=== PATIENT | female | born 1980 | race Caucasian/White ===

== ENCOUNTER → 2021-04-21 | Outpatient (CLI) | payer OTHER ==
--- NOTE | 2021-04-21 18:33 | FL ---
EXAMINATION TYPE: Right wrist fluoroscopic-guided arthrogram injection. DATE OF EXAM: 04/21/2021 HISTORY: 40-year-old male R22.31, lateral wrist lump and pain/numbness of the fourth and fifth digits . PROCEDURES: 1. Right wrist fluoroscopy. 2. Right wrist arthrogram. Total fluoroscopy time: 36 seconds. Total images: 5 TECHNIQUE: The procedure, risks, and alternatives, were discussed with the patient, who requested that sadaf pérez The consent form was signed, and teach-back occurred. The site/side of the procedure was marked with a line with participation by the patient. The accompan lauren paperwork was verified for consistency. A directed history and physical exam was performed prior to the procedure. Medication reconciliation was performed by ancillary personnel. A critical pause was performed with assisting personnel just pr ior to the procedure, and the patient's identity was confirmed using 2 identifiers. Imaging guidance was utilized to select the precise skin entry point just prior to the procedure. The dorsal right was prepped and draped in the usual sterile fashion and local 1% lidocaine anesthesi a was instilled. Under fluoroscopic guidance, a 25 gauge 1.5 inch needle was introduced into the katelyn liz radioscaphoid joint and appropriate needle tip position was confirmed after a small amount of con trast injection. Approximately 2 ml from a 20 mL mixture comprised of 5 mL Isovue-300, 15 mL sterile saline, and 0.07 mL Gadavist was injected into the patient's wrist joint. The needle was then removed. The patient zohaib erated the procedure well. There was no immediate complication. After the procedure, the patient's condition was unchanged. Estimated blood loss was minimal. Images show no clear extension into either the mid carpal compartment or distal radioulnar joint. IMPRESSION: Technically successful right wrist arthrogram injection for MRI. No immediate complication.
--- NOTE | 2021-04-24 22:29 | MR ---
EXAMINATION TYPE: MR wrist arthrogram RT w con DATE OF EXAM: 04/21/2021 COMPARISON: NONE HISTORY: 40-year-old female R22.31, lump on her right wrist anterior lateral edge. No known trauma. P ain in wrist, on occasion 4th and 5th digits get cold. Technique: Multiplanar, multisequence images of the right wrist were obtained after intra-articular a dministration of a gadolinium mixture. Please refer to arthrogram injection report of that same day f or further details. FINDINGS: The scapholunate ligament is intact. Lunotriquetral ligament is intact. No evidence for acute or healing fracture. There is some inadvertent administration of contrast into the second and third dorsal compartments. O therwise, the dorsal and volar flexor tendons show no gross abnormality. Mildly thickened median nerve at the level of the distal wrist crease with a cross-sectional area of 13 sq mm. The median nerve is also seen at this level. Fascicles appear slightly thickened, axial abel ge 8. There is inadvertent extravasation of administered contrast along the ulnar volar aspect of the wrist extravasated contrast tracks proximally along the ulnar half of the volar musculature. There is also a 1.5 x 1.3 x 0.9 cm cystic area that fills with contrast along the ulnar volar aspect of the wrist. This is in close proximity to the ulnar nerve. In addition, multilocular cystic area along the radial aspect of the wrist measuring 1.6 x 1.3 x 1.0 cm. There is no extension of contrast into the midcarpal compartment or into the distal radioulnar joint. The TFC remains intact. IMPRESSION: 1. A 1.6 x 1.3 x 1.0 cm multilocular ganglion cyst versus a prominent volar recess along the radial a spect of the wrist. This probably corresponds to the patient's lump and is noted to fill with injecte d contrast, indicating that it communicates with the joint. 2. A similar area along the ulnar volar aspect of the wrist measures 1.5 x 1.3 x 0.9 cm and is in el se proximity to the ulnar nerve but without clear nerve impingement. The ulnar nerve itself shows vladimir ewhat thickened fascicles which can be seen with ulnar neuropathy. Clinically correlate. 3. In addition, the median nerve is borderline thickened at 13 sq mm (normal less than 12 sq mm). Cor relate for any potential symptoms of carpal tunnel syndrome.
== END | disposition home or self-care (01) ==
LOC: RADFLMAIN 13:04
PROVIDERS: ATTEND Surgery Surgery of the Hand
DX: G56.21 Lesion of ulnar nerve, right upper limb (principal); G56.11 Other lesions of median nerve, right upper limb
CPT/HCPCS: 25246; 73115; 73222; A9585; Q9967

== ENCOUNTER → 2021-08-16 | Outpatient (CLI) | payer OTHER | LOC: CPPFTMAIN 07:17 | PROVIDERS: ATTEND Family Medicine | DX: R06.02 Shortness of breath (principal); Z79.891 Long term (current) use of opiate analgesic; Z88.6 Allergy status to analgesic agent; Z88.8 Allergy status to other drugs, medicaments and biological substances; Z91.018 Allergy to other foods; Z91.013 Allergy to seafood | CPT/HCPCS: 94060; 94726; 94729 ==

== ENCOUNTER → 2023-02-14 | Outpatient (CLI) | payer BC, OTHER ==
--- NOTE | 2023-02-14 17:28 | US ---
EXAMINATION TYPE: US venous doppler duplex LE RT DATE OF EXAM: 02/14/2023 5:04 PM COMPARISON: NONE CLINICAL INDICATION: Female, 42 years old with history of M25.561 PAIN IN RIGHT KNEE; Pain right knee SIDE PERFORMED: right TECHNIQUE: The lower extremity deep venous system is examined utilizing real time linear array sonog rosa with graded compression, doppler sonography and color-flow sonography. VESSELS IMAGED: Common Femoral Vein Deep Femoral Vein Greater Saphenous Vein * Femoral Vein Popliteal Vein Small Saphenous Vein * Proximal Calf Veins (* superficial vessels) Right Leg: no evidence of DVT as visualized IMPRESSION: Grayscale, color doppler, spectral doppler imaging performed of the deep veins of the lo wer extremities. There is normal flow, compressibility, vascular waveforms.
== END | disposition home or self-care (01) ==
LOC: RADUSWWP 16:41
PROVIDERS: ATTEND Family Medicine
DX: M25.561 Pain in right knee (principal)

== ENCOUNTER → 2023-03-08 | Outpatient (CLI) | payer BC, OTHER ==
--- NOTE | 2023-03-09 08:51 | MR ---
EXAMINATION TYPE: MR knee RT wo con DATE OF EXAM: 03/08/2023 COMPARISON: NONE HISTORY: Rt knee pain with swelling for one month. TECHNIQUE: Multiplanar, multisequence images of the knee is performed without IV contrast. FINDINGS: MEDIAL MENISCUS: Faint triangular increased signal posterior horn posterior aspect does not definitiv ana extend to articular surface. LATERAL MENISCUS: Anterior and posterior horns are intact without tear. CRUCIATE LIGAMENTS: The anterior and posterior cruciate ligaments are intact and unremarkable. COLLATERAL LIGAMENTS: The medial collateral ligament and lateral collateral ligament complex are inta ct and unremarkable. EXTENSOR MECHANISM: Visualized quadriceps and patellar tendons are intact. EFFUSION: No significant suprapatellar joint effusion. POPLITEAL CYST: No popliteal/fernandes cyst. TRICOMPARTMENT SPACES: Tricompartment articular cartilage is preserved. No significant spurring is se en. CARTILAGE: Tricompartment articular cartilage is maintained. BONE MARROW SIGNAL: Some heterogeneity consistent with red marrow reconversion. No suspicious edema. OTHER: No additional significant abnormality is appreciated. IMPRESSION: No meniscal or ligamentous tear is seen.
== END | disposition home or self-care (01) ==
LOC: RADMRIMAIN 14:16
PROVIDERS: ATTEND Family Medicine
DX: M25.561 Pain in right knee (principal); M79.89 Other specified soft tissue disorders; G89.29 Other chronic pain